=== PATIENT | male | born 1985 | race Caucasian/White ===

== ENCOUNTER 2019-03-15 09:59 | Emergency (ER) | payer MEDICAID ==
[~2019-03-15] VITALS: Ht 167.6 cm; Wt 73.4 kg
[2019-03-15 10:02] VITALS: BP 129/81; PULSE 69; RESP 18; Ht 167.6 cm; Wt 73.4 kg
[2019-03-15] MEDS ORDERED: POLY10DR19 BOTH EYES (10:30)
--- NOTE | 2019-03-15 10:38 | ERD ---
ER Documentation Chief Complaint Chief Complaint pt is bib family with c/o left lower eye lid swelling and pain for 2 days HPI 33-year-old healthy male with no reported past medical history who presents with complaint of left eyelid swelling and pain over the past 2 days. Also with thick discharge surrounding left eyelid. He denies eye pain with movement, recent eye trauma or injury, blurry or compromise vision, recent URI type symptoms or illness. He denies fevers, chills, lymphadenopathy, or any other concerning symptoms. ROS All systems reviewed and are negative except as per history of present illness. Medications Home Meds Active Scripts Polymyxin B Sulfate-TMP* (Polymyxin B-TMP Eye Drops*) 10 Ml Drops, 1 DROP BOTH EYES QID for 7 Days, EA Prov:MILDRED JUARES PA-C 03/15/19 Allergies Allergies: Coded Allergies: Penicillins (Verified Allergy, Unknown, 03/15/19) PMhx/Soc Medical and Surgical Hx: pt denies Medical Hx, pt denies Surgical Hx Hx Alcohol Use: Yes Hx Substance Use: No Hx Tobacco Use: No Smoking Status: Never smoker FmHx Family History: No diabetes, No coronary disease, No other Physical Exam Vitals Vital Signs Date Temp Pulse Resp B/P (MAP) Pulse Ox O2 O2 Flow FiO2 Time Delivery Rate 03/15/19 98.2 69 18 129/81 97 10:02 (97) Physical Exam Const: No acute distress Head: Atraumatic Eyes: Conjunctival edema to left eye, discharge, no pain with ocular movement, pupils equally round and reactive to light ENT: Normal External Ears, Nose and Mouth. Neck: Full range of motion. No meningismus. Resp: Clear to auscultation bilaterally Cardio: Regular rate and rhythm, no murmurs Abd: Soft, non tender, non distended. Normal bowel sounds Skin: No petechiae or rashes Back: No midline or flank tenderness Ext: No cyanosis, or edema Neur: Awake and alert Psych: Normal Mood and Affect Procedures/MDM 33-year-old male presents with left eye pain and swelling. No foreign body sensation, no FB on exam. No recent eye trauma or suspected microtrauma (dust, sand, etc). No significant photophobia. Given history and exam doubt corneal abrasion or ulcer, globe rupture, uveitis, acute angle glaucoma, uveitis, HSV keratitis Based on H&P and exam, this patient appears to be low risk for emergent causes of lid swelling such as orbital cellulitis, chalazion, hordeolum, dacryocystitis or dacryoadenitis, lacrimal tumor DISPOSITION PLAN: We discussed follow up with the patient's primary care doctor within 24 to 48 hours. Patient counseled regarding my diagnostic impression and care plan. Prior to discharge all questions answered. Pt agrees with treatment plan and understands strict return precautions. Precautionary instructions provided including instructions to return to the ER if not improving or for any worsening or changing symptoms or concerns. Disclaimer: Inadvertent spelling and grammatical errors are likely due to EHR/dictation software use and do not reflect on the overall quality of patient care. Also, please note that the electronic time recorded on this note does not necessarily reflect the actual time of the patient encounter. Departure Diagnosis: Primary Impression: Eye problem Condition: Stable Patient Instructions: Conjunctivitis Caused by Infection Referrals: [facility] YOU HAVE RECEIVED A MEDICAL SCREENING EXAM AND THE RESULTS INDICATE THAT YOU DO NOT HAVE A CONDITION THAT REQUIRES URGENT TREATMENT IN THE EMERGENCY DEPARTMENT. FURTHER EVALUATION AND TREATMENT OF YOUR CONDITION CAN WAIT UNTIL YOU ARE SEEN IN YOUR DOCTORS OFFICE WITHIN THE NEXT 1-2 DAYS. IT IS YOUR RESPONSIBILITY TO MAKE AN APPOINTMENT FOR FOLOW-UP CARE. IF YOU HAVE A PRIMARY DOCTOR --you should call your primary doctor and schedule an appointment IF YOU DO NOT HAVE A PRIMARY DOCTOR YOU CAN CALL OUR PHYSICIAN REFERRAL HOTLINE AT IF YOU CAN NOT AFFORD TO SEE A PHYSICIAN YOU CAN CHOSE FROM THE FOLLOWING [facility] [address] [facility]. [facility] [address] [facility] [facility] [address] [facility]. [facility] [address] [facility]. [facility] [address] [facility]. [facility]. [address] Additional Instructions: Call your primary care doctor TOMORROW for an appointment during the next 2-3 days.See the doctor sooner or return here if your condition worsens before your appointment time. There is no improvement in your symptoms in 3 to 4 days please return to emergency room for further evaluation. MILDRED JUARES PA-C Mar 15, 2019 10:38
== END 2019-03-15 11:26 | disposition home or self-care (01) ==
LOC: FTE 09:59
DX: H57.9 Unspecified disorder of eye and adnexa (principal)
CPT/HCPCS: 99283